=== PATIENT | male | born 1960 | race African-American/Black ===

== ENCOUNTER 2022-04-15 07:03 | Emergency (ER) | payer MEDICAID ==
[~2022-04-15] VITALS: Ht 180.3 cm; Wt 93.0 kg
--- NOTE | 2022-04-15 07:08 | NUR ---
BIBA TO BED 4
[2022-04-15 07:10] VITALS: BP 145/89
[2022-04-15] MEDS ORDERED: KETOROLAC 30 MG/ML VIAL IM ONE (07:15)
[2022-04-15] MEDS ORDERED: oxyCODONE/APAP 5/325 MG 1 TAB TAB PO ONE (07:15)
[2022-04-15] MEDS ORDERED: LIDOCAINE 5% 1 EA PATCH TP SCH (07:15)
[2022-04-15] MEDS ORDERED: predniSONE 20 MG TAB PO ONE (07:15)
[2022-04-15] MEDS ORDERED: BACLOFEN 10 MG TAB PO SCH (07:15)
--- NOTE | 2022-04-15 08:00 | NUR ---
61YO MALE PT BIBA FROM HOME C/O THROBBING 9/10 L LOWER BACK AND KNEE PAIN DUE TO FALL XTODAY. PER [facility], PT FELL DOWN A FEW STEPS AT HOME. PT DENIES INJURY TO HEAD OR LOC. PT REPORTS RADIATION DOWN TO LEFT GLUTE, LEG AND TOES. PT HAS COMFIRMED L5 HERNIATED DISC BY [facility] X4 DAYS AGO. PT STATES OCCASIONAL NUMBING IN L EXTREMETIES, DENIES AT THIS TIME. PT PRESENTS WITH NO VISIBLE INJURY TO BACK OR LEG. PT ABLE TO FLEX AND LIFT LEGS WITH SOME DISCOMFORT. PT STATES TAKING MOTRIN AND ALLEVE FOR PAIN. PT AAOX4, IN VISIBLE DISTRESS W/ GRUNTING UPON MOVEMENT. RESPIRATIONS EVEN AND UNLABORED. NO EDEMA OR SWELLING AT THIS TIME. HX: HTN, SEIZURES NKA
--- NOTE | 2022-04-15 08:20 | NUR ---
PT TAKEN TO CT VIA ANGEL[facility]
--- NOTE | 2022-04-15 08:32 | NUR ---
PT BROUGHT BACK FROM CT VIA [facility]GEL[facility]
--- NOTE | 2022-04-15 08:54 | NUR ---
pt encouraged to urinate, "not right now"
[2022-04-15 09:39] VITALS: BP 159/110
--- NOTE | 2022-04-15 09:40 | NUR ---
PT BP RETAKEN [email or web address] MD MADE AWARE
--- NOTE | 2022-04-15 10:25 | NUR ---
PT AT REST AND SLEEPING , NO VISIBLE DISTRESS. RESPIRATIONS EVEN AND UNLABORED
[2022-04-15] MEDS ORDERED: IBUP-2213 PO (10:44)
[2022-04-15] MEDS ORDERED: PRED20TA5 PO (10:44)
[2022-04-15] MEDS ORDERED: ACET-5629 PO (10:44)
[2022-04-15] MEDS ORDERED: BACL10TA4 PO (10:44)
--- NOTE | 2022-04-15 11:14 | NUR ---
[facility] CALLED FOR PT UBER TRANSPORT
--- NOTE | 2022-04-15 11:15 | NUR ---
Patient discharged with v/s stable. Written and verbal after care instructions FOR HERNIATED DISK, DEGENERATIVE DISC AND SCIATICA given and explained. Patient alert, oriented and verbalized understanding of instructions. Ambulatory with steady gait. All questions addressed prior to discharge. ID band removed. Patient advised to follow up with PMD. Rx of OXYCODONE, BACLOFEN, IBUPROFEN, AND PREDNISONE given. Opportunity to ask questions provided and answered. Addendum: 04/15/22 at 1116 by SRINIVAS PT PROVIDED WITH [facility]O DUNBAR TO ADDRESS ON FILE . ADDRESS COMFIRMED BY PT
[2022-04-15 11:18] LABS: BARBITURATE, URINE NEGATIVE ng/ml (NEG <=200); BENZODIAZEPINE, URINE NEGATIVE ng/mL (NEG <=200); CANNABINOID, URINE POSITIVE ng/mL (NEG <=50); COCAINE, URINE POSITIVE ng/mL (NEG <=300)
[2022-04-15 11:19] LABS: OPIATE, URINE POSITIVE ng/mL (NEG <=2000); PHENCYCLIDINE SCREEN,URINE POSITIVE ng/mL (NEG <=25)
[2022-04-16] MEDS ORDERED: ACET-5629 PO (13:10)
== END 2022-04-15 11:15 | disposition home or self-care (01) ==
LOC: MED 07:03
DX: S22.080A Wedge compression fracture of T11-T12 vertebra, initial encounter for closed fracture (principal); S32.010A Wedge compression fracture of first lumbar vertebra, initial encounter for closed fracture; M54.32 Sciatica, left side; G89.29 Other chronic pain; M51.26 Other intervertebral disc displacement, lumbar region; M19.90 Unspecified osteoarthritis, unspecified site; M47.896 Other spondylosis, lumbar region; I10 Essential (primary) hypertension; F17.200 Nicotine dependence, unspecified, uncomplicated; F14.90 Cocaine use, unspecified, uncomplicated; Z71.6 Tobacco abuse counseling; Z98.890 Other specified postprocedural states; Z79.899 Other long term (current) drug therapy; W10.9XXA Fall (on) (from) unspecified stairs and steps, initial encounter; Y93.89 Activity, other specified; Y92.89 Other specified places as the place of occurrence of the external cause; Y99.8 Other external cause status
CPT/HCPCS: 72131; 80305; 96372; 99285; J1885; J7512

== ENCOUNTER 2022-04-16 12:34 | Emergency (ER) | payer MEDICAID ==
[~2022-04-16] VITALS: Ht 180.3 cm; Wt 93.0 kg
[~2022-04-16 12:34] MED LIST: ACET-5629 PO; BACL10TA4 PO; IBUP-2213 PO; PRED20TA5 PO
[2022-04-16 12:39] VITALS: BP 154/105
--- NOTE | 2022-04-16 12:45 | NUR ---
PT AMBULATORY TO [facility]
[2022-04-16] MEDS ORDERED: ACET-5629 PO (13:10)
--- NOTE | 2022-04-16 13:10 | NUR ---
MAI CROWE IN LOBBY FOR EVAL
--- NOTE | 2022-04-16 13:15 | NUR ---
PT SEEN IN THIS ER ON 04/15/22 REQUESTING OXYCODONE SENT TO ANOTHER PHARMACY BECAUSE THE PHARMACY HE WENT TO DOES NOT HAVE MEDICATION IN STOCK. MEDHX- SEIZURE DISORDER ALLX- TETRACYCLINE
[2022-04-16 13:19] VITALS: BP 141/74
--- NOTE | 2022-04-16 13:19 | NUR ---
Patient discharged with v/s stable. Written and verbal after care instructions given and explained. Patient alert, oriented and verbalized understanding of instructions. Ambulatory with steady gait. All questions addressed prior to discharge. ID band removed. Patient advised to follow up with PMD. Rx of PERCOCET 5-325 given. Patient educated on indication of medication including possible reaction and side effects. Opportunity to ask questions provided and answered.
== END 2022-04-16 13:19 | disposition home or self-care (01) ==
LOC: MED 12:34
DX: M51.36 Other intervertebral disc degeneration, lumbar region (principal); I10 Essential (primary) hypertension; Z76.0 Encounter for issue of repeat prescription
CPT/HCPCS: 99283